=== PATIENT | female | born 1960 | race Caucasian/White ===

== ENCOUNTER → 2017-06-08 | Outpatient (CLI) | payer OTHER | LOC: BMCIMAGING 15:04 | PROVIDERS: ATTEND Internal Medicine Endocrinology, Diabetes & Metabolism | DX: E04.2 Nontoxic multinodular goiter (principal) | CPT/HCPCS: 76536-PO ==

== ENCOUNTER 2018-05-26 16:51 | Emergency (ER) | payer OTHER ==
[2018-05-26 17:00] VITALS: BP 134/81
[2018-05-26] MEDS ORDERED: TDAP ADULT 0.5 ML INJ (BOOSTRIX) IM ONE (17:49)
--- NOTE | 2018-05-26 17:50 | EDPHY ---
H & P Stated Complaint: accidentally cut inner l wrist making a model Time Seen by Provider: 05/26/18 17:48 HPI/ROS: HPI: This is a 58-year-old female who presents with Chief Complaint: accidentally cut inner l wrist making a model Location: Left forearm Quality: Laceration Duration: Prior to arrival Signs and Symptoms: No bleeding, no radiation, no numbness, no weakness, no tingling, no incontinence, no decreased range of motion, no swelling, no pain, no fever Timing: Acute Severity: [id number] Context: Patient is right-hand dominant, working on an architectural mold when she accidentally used the knife to cut a piece and sliced her left forearm. She reports that she first felt immediate, constant, moderate pain with bleeding. She applied direct pressure with cessation of bleeding. She denies any decreased range of motion, paresthesias, weakness. Reports tetanus up-to- date. Modifying Factors: Direct pressure Comment: ROS: A comprehensive 10 system review of systems is otherwise negative aside from elements mentioned in the history of present illness. MEDICAL/SURGICAL/SOCIAL HISTORY: Medical history: Generally healthy. Does not take any regular medications. Surgical history: Denies Social history: Nonsmoker. CONSTITUTIONAL: Extremely polite and cooperative adult white female, awake and alert, no obvious distress HEENT: Atraumatic and normocephalic. NECK: supple EXTREMITIES: 2/2 pulses, strength 5/5, left forearm shows vertical 6 cm simple , deep laceration. DIP/PIP/MCP flexion/extension intact with good light touch sensation. no deformities, no clubbing, no cyanosis or edema. NEUROLOGICAL: no focal neuro deficits. GCS 15. Light touch sensation intact. SKIN: Warm and dry, no erythema. no rash. Good capillary refill. Source: Patient Exam Limitations: No limitations - Personal History Current Tetanus Diphtheria and Acellular Pertussis (TDAP): Yes Tetanus Vaccine Date: unshure - Medical/Surgical History Hx Asthma: No Hx Chronic Respiratory Disease: No Hx Diabetes: No Hx Cardiac Disease: No Hx Renal Disease: No Hx Cirrhosis: No Hx Alcoholism: No Hx HIV/AIDS: No Hx Splenectomy or Spleen Trauma: No Other PMH: denies - Social History Smoking Status: Never smoked Constitutional: Initial Vital Signs Temperature (C) 36.5 C 05/26/18 16:58 Heart Rate 62 05/26/18 16:58 Respiratory Rate 16 05/26/18 16:58 Blood Pressure 134/81 H 05/26/18 16:58 O2 Sat (%) 99 05/26/18 16:58 O2 Delivery Mode Room Air Allergies/Adverse Reactions: No Known Allergies Allergy (Verified 05/26/18 16:57) Home Medications: Medication Instructions Recorded Estradiol 05/26/18 Progesterone 05/26/18 Medical Decision Making Procedures: Procedure: Laceration repair. Verbal consent was obtained from the patient. The 6 cm, simple, deep laceration on the left forearm posterior aspect was anesthetized in the usual fashion using 10 mL of 1% lidocaine with epinephrine The wound was irrigated, draped and explored to its base with a gloved finger. There were no deep structures involved. No tendon injury was identified. The wound was repaired with 4 0 Prolene running suture. Good hemostasis was achieved and patient tolerated procedure well. Clean sterile dressing applied. The procedure was performed by myself. ED Course/Re-evaluation: Tetanus is current. Local anesthesia given and laceration copiously irrigated Laceration repaired Clean sterile dressing applied. Verbal written wound care instructions provided No signs of neurovascular compromise/tenting of skin/compartment syndrome/ extremities and joints examined above and below area of concern and are neurovascularly intact. This patient was seen under the supervision of my secondary supervising physician. I evaluated care for this patient independently. Discussed this patient with Dr. Watt. Differential Diagnosis: Differential diagnosis includes but is not limited to laceration, foreign body, nerve injury, tendon injury. - Data Points Medications Given: Discontinued Medications Diphtheria/Tetanus/Acell Pertussis (Boostrix) 0.5 ml IM .ONCE ONE Stop: 05/26/18 17:50 Last Admin: 05/26/18 18:10 Dose: Not Given Departure - Departure Disposition: Home, Routine, Self-Care Clinical Impression: Laceration of left forearm without complication Qualifiers: Encounter type: initial encounter Qualified Code(s): S51.812A - Laceration without foreign body of left forearm, initial encounter Condition: Good Instructions: Care For Your Stitches (ED), Laceration (ED) Additional Instructions: Keep the dressing dry and in place for 48 hours. After 48 hours, you may remove the dressing; wash the site daily with mild soap and water; then pat dry. Take Tylenol 650 mg every 4 hours and/or Ibuprofen 600 mg every 8 hours with food as needed for pain. Do not soak laceration and water including taking a bath and swimming until sutures are removed. Wound Care Follow-Up: Removal of sutures in [ 10-14 ] days. Suture removal is complimentary in uncomplicated cases. Infection or abnormal findings would require reevaluation by the MD. In that case, you may be billed. Referrals: Sunny Banegas MD [Primary Care Provider] - As per Instructions
== END 2018-06-08 16:23 | disposition home or self-care (01) ==
LOC: EDUNIT# → EDBD
PROC: 0HQEXZZ Repair Left Lower Arm Skin, External Approach (ICD-10-PCS; principal; 2018-05-26)
DX: S51.812A Laceration without foreign body of left forearm, initial encounter (principal); W26.0XXA Contact with knife, initial encounter; Y93.89 Activity, other specified; Y92.9 Unspecified place or not applicable; Y99.9 Unspecified external cause status

== ENCOUNTER → 2018-11-19 | Outpatient (CLI) | payer OTHER | LOC: BMCIMAGING 13:17 | PROVIDERS: ATTEND Internal Medicine | DX: Z12.31 Encounter for screening mammogram for malignant neoplasm of breast (principal) ==